=== PATIENT | male | born 2000 | race Caucasian/White ===

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

== ENCOUNTER → 2022-10-15 | Outpatient (CLI) | payer OTHER, MEDICAID ==
[2022-10-15 16:44] LABS: BASO # 0.1 10^3/uL (0.0-0.2); EOS # 0.1 10^3/uL (0.0-0.5); EOS % 2.2 % (0.0-3.0); HEMATOCRIT 45.9 % (42.0-52.0); HEMOGLOBIN 15.5 g/dl (13.5-17.5); LYMPH # 1.9 10^3/uL (1.5-5.0); LYMPH % 37.5 % (24.0-44.0); MEAN CORPUSCULAR HEMOGLOBIN 31.1 pg (27.0-33.0); MEAN CORPUSCULAR HGB CONC 33.8 g/dl (32.0-36.5); MONO # 0.3 10^3/uL (0.0-0.8); MONO % 5.6 % (2.0-8.0); NEUTROPHILS # 2.7 10^3/uL (1.5-8.5); NEUTROPHILS % 53.3 % (36.0-66.0); PLATELET COUNT, AUTOMATED 248 10^3/uL (150-450); RED BLOOD COUNT 4.99 10^6/uL (4.30-6.10)
[2022-10-15 17:25] LABS: ALBUMIN 4.1 G/DL (3.2-5.2); ALKALINE PHOSPHATASE 78 U/L (46-116); ALT/SGPT 54 U/L (7.0-40); AST/SGOT 30 U/L (<34); BILIRUBIN,TOTAL 2.8 MG/DL (0.3-1.2); BLOOD UREA NITROGEN 9 MG/DL (9-23); CARBON DIOXIDE LEVEL 30 MMOL/L (20-31); CHLORIDE LEVEL 102 MMOL/L (98-107); CHOLESTEROL LEVEL 140 MG/DL (<200); CHOLESTEROL RISK RATIO 3.95 (<5); GLUCOSE, FASTING 166 MG/DL (60-100); HDL CHOLESTEROL 35.4 MG/DL (>40); LDL CHOLESTEROL 83.6 MG/DL (<100); NON-HDL-C 105 MG/DL; SODIUM LEVEL 137 MMOL/L (136-145); THYROID STIMULATING HORMONE 0.699 uIU/ML (0.48-4.17); TOTAL PROTEIN 6.9 G/DL (5.7-8.2); TRIGLYCERIDES LEVEL 105 MG/DL (<150)
== END ==
LOC: M WUC 14:22
PROVIDERS: ATTEND Physician Assistant
DX: E78.5 Hyperlipidemia, unspecified (principal); R78.71 Abnormal lead level in blood; E55.9 Vitamin D deficiency, unspecified

== ENCOUNTER 2023-03-11 08:12 | Emergency (ER) | payer OTHER, MEDICAID ==
[~2023-03-11] VITALS: Ht 175.3 cm; Wt 70.5 kg
[2023-03-11 08:21] VITALS: BP 140/100; TEMP 98; O2SAT 98
== END 2023-03-11 11:13 | disposition left against medical advice (07) ==
LOC: M ED 08:12
DX: Z53.21 Procedure and treatment not carried out due to patient leaving prior to being seen by health care provider (principal)

== ENCOUNTER 2025-09-03 16:58 | Inpatient (IN) | payer MEDICAID, OTHER, SELFPAY ==
[2025-09-03 18:00] LABS: PLATELET COUNT, AUTOMATED 283 10^3/uL (150-450)
[2025-09-03 18:19] LABS: ETHYL ALCOHOL (ETHANOL) 0.003 % (0.000-0.010)
[2025-09-03 18:20] LABS: SALICYLATE LEVEL < 3.0 MG/DL (<30)
[2025-09-03 18:21] LABS: ALT/SGPT 46 U/L (7.0-40); AST/SGOT 24 U/L (<34); CALCIUM LEVEL 9.9 MG/DL (8.5-10.1); CARBON DIOXIDE LEVEL 28 MMOL/L (20-31); CHLORIDE LEVEL 102 MMOL/L (98-107); CREATININE FOR GFR 0.81 MG/DL (0.70-1.30); GLOMERULAR FILTRATION RATE > 90.0 (>60); POTASSIUM SERUM 3.7 MMOL/L (3.5-5.1); SODIUM LEVEL 140 MMOL/L (136-145)
[2025-09-03] MEDS: ACETAMINOPHEN 500 MG TAB PO ONE (19:01)
[2025-09-03 19:45] LABS: AMPHETAMINES LEVEL URINE NEGATIVE (NEGATIVE); BARBITURATES URINE NEGATIVE (NEGATIVE); BENZODIAZEPINES URINE NEGATIVE (NEGATIVE); CANNABINOIDS URINE NEGATIVE (NEGATIVE); COCAINE METABOLITE URINE NEGATIVE (NEGATIVE); METHADONE URINE NEGATIVE (NEGATIVE); OPIATES URINE NEGATIVE (NEGATIVE); PHENCYCLIDINE URINE NEGATIVE (NEGATIVE)
[2025-09-03] MEDS ORDERED: IBUPROFEN 400 MG TAB PO PRN (20:40)
[2025-09-03] MEDS ORDERED: MAALOX 30 ML SUSP *UDC PO PRN (20:40)
[2025-09-03] MEDS ORDERED: MOM 30 ML SUSPENSION UDC PO PRN (20:40)
[2025-09-03] MEDS ORDERED: HALOPERIDOL 5 MG TAB PO PRN (20:40)
[2025-09-03] MEDS ORDERED: traZODone 50 MG TAB PO PRN (20:40)
[2025-09-03 23:09] VITALS: BP 125/84; TEMP 98.3; O2SAT 99
[2025-09-04] MEDS ORDERED: HOME MED LIST COMPLETE! XX SCH (09:30)
[2025-09-04] MEDS: LORazepam 1 MG TAB PO PRN (14:55)
[2025-09-04] MEDS: risperiDONE 0.5 MG TAB PO SCH (15:53)
[2025-09-04 18:18] VITALS: BP 138/63; TEMP 98.4
[2025-09-04] MEDS: QUEtiapine FUMARATE 50MG TAB PO SCH (20:31)
[2025-09-05 06:39] VITALS: BP 121/61; TEMP 97.3; O2SAT 99
[2025-09-05] MEDS ORDERED: LORazepam 0.5 MG TAB PO PRN (14:50)
[2025-09-05 15:21] VITALS: BP 123/76; TEMP 98.2; O2SAT 96
[2025-09-05] MEDS: PRAZOSIN 1 MG CAP PO SCH (20:15)
[2025-09-05] MEDS: RISPERIDONE 1 MG TAB PO SCH (20:15)
[2025-09-06 06:53] VITALS: BP 114/58; TEMP 97.3; O2SAT 98
[2025-09-06 15:14] VITALS: BP 127/84; TEMP 97.7; O2SAT 95
[2025-09-06] MEDS: ACETAMINOPHEN 325 MG TAB PO PRN (20:17)
[2025-09-07 06:25] VITALS: BP 122/76; TEMP 97.4
[2025-09-07 16:51] VITALS: BP 144/83; TEMP 97.3; O2SAT 98
[2025-09-07] MEDS: RISPERIDONE 1 MG TAB PO SCH (20:52)
[2025-09-08 06:30] VITALS: BP 126/60; TEMP 97.3; O2SAT 99
[2025-09-08] MEDS: PILL CUTTER 1 EACH XX PRN (08:50)
[2025-09-08 14:36] VITALS: BP 130/74; TEMP 97.9; O2SAT 100
[2025-09-09 06:33] VITALS: BP 137/64; TEMP 97.5; O2SAT 97
[2025-09-09 14:47] VITALS: BP 128/66; TEMP 97.1; O2SAT 96
[2025-09-09 20:19] VITALS: BP 128/66
[2025-09-10 06:37] VITALS: BP 131/81; TEMP 97.8; O2SAT 97
[2025-09-10] MEDS ORDERED: NICOTINE POLACRILEX 2 MG GUM PO PRN (09:55)
[2025-09-10 16:07] VITALS: BP 129/70; TEMP 97.7; O2SAT 97
[2025-09-10] MEDS: RISPERIDONE 1 MG TAB PO SCH (20:07)
[2025-09-11 19:03] VITALS: BP 145/85; TEMP 97.9
[2025-09-11] MEDS: RAMELTEON 8 MG TAB PO SCH (21:09)
[2025-09-12 06:27] VITALS: BP 122/86; TEMP 97.1; O2SAT 95
[2025-09-12 15:17] VITALS: BP 144/86; TEMP 98; O2SAT 99
[2025-09-13 06:34] VITALS: BP 127/58; TEMP 97.6; O2SAT 99
[2025-09-13] MEDS ORDERED: RAME8TAB2 PO (08:34)
[2025-09-13] MEDS ORDERED: RISP-106 PO (08:34)
== END 2025-09-13 13:52 | disposition home or self-care (01) | DRG 757 ==
LOC: M ED 16:58 → M ED INP 20:36 → M PSY 22:53
PROVIDERS: ADMIT Psychiatry & Neurology Neurology; ATTEND Psychiatry & Neurology Neurology
DX: F84.0 Autistic disorder (principal); F41.0 Panic disorder [episodic paroxysmal anxiety]; F41.1 Generalized anxiety disorder; F43.10 Post-traumatic stress disorder, unspecified; F90.9 Attention-deficit hyperactivity disorder, unspecified type